=== PATIENT | male | born 1965 | race Two or more races ===

== ENCOUNTER 2024-09-21 08:51 | Outpatient (AMB) | payer MEDICAID, SELFPAY ==
[2024-09-21 09:07] VITALS: BP 118/78; PULSE 83; RESP 18; TEMP 36.7; O2SAT 95; BMI 36.8
--- NOTE | 2024-09-21 09:07 | ORTHONT_ITS ---
Vital signs 09/21/24 09:07 Height 1.83 m Height Method Stated Weight 123.15 kg Weight Measurement Method Standing Scale BMI 36.8 BP 118/78 Blood Pressure Source Automatic Cuff Blood Pressure Location Right Upper Arm Position Sitting Respiration 18 Pulse 83 Pulse Source Monitor Temp 98.0 F Temp Source Temporal Artery Scan Pulse Oximetry (%) 95 Oxygen Delivery Method Room Air Med/Allergies Allergies & Medications Allergies naproxen Allergy (Verified 09/21/24 09:08) Medication Reconciliation acetaminophen 500 mg capsule 500 mg PO Q6H PRN 08/25/24 [History Confirmed 09/21/24] albuterol sulfate 2.5 mg/3 mL (0.083 %) solution for nebulization 2.5 mg inhalation Q6H 08/25/24 [History Confirmed 09/21/24] atorvastatin 40 mg tablet 40 mg PO QDAY 08/25/24 [History Confirmed 09/21/24] azithromycin 250 mg tablet 250 mg PO QDAY 08/25/24 [History Confirmed 09/21/24] empagliflozin 25 mg tablet (Jardiance) 25 mg PO QAM 08/25/24 [History Confirmed 09/21/24] furosemide 40 mg/5 mL (8 mg/mL) oral solution 20 mg PO BID 08/25/24 [History Confirmed 09/21/24] metformin 1,000 mg tablet 1,000 mg PO QDAY 08/25/24 [History Confirmed 09/21/24] pantoprazole 40 mg tablet,delayed release 40 mg PO QDAY 08/25/24 [History Confirmed 09/21/24] sulfamethoxazole 200 mg-trimethoprim 40 mg/5 mL oral suspension 5 ml PO QDAY 08/25/24 [History Confirmed 09/21/24] sumatriptan succinate 25 mg tablet 25 mg PO Q2H PRN 08/25/24 [History Confirmed 09/21/24] tiotropium bromide 18 mcg capsule with inhalation device (Spiriva with HandiHaler) 1 cap inhalation QDAY 08/25/24 [History Confirmed 09/21/24] Subjective Visit Visit for: new patient and knee (BILATERAL) Immunization / Flu Flu Vaccine in the Last 12 Months: No Flu Vaccine Exclusion Criteria: No Exclusion Criteria History of Present Illness Chief complaint: PRE-OPT Ehsan is a pleasant 59-year-old male with bilateral knee pain and bilateral knee arthritis. The pain has been ongoing for several years. He reports he works in the [employer] and this has been wearing tear. He has had over 4 injections in each knee. The pain is affecting his quality life and happiness. He has significant medical issues including a history of a PE when he had COVID. He is on Xarelto. He was able to get cardiac clearance. Personal History Occupation: UNEMPLOYED Red flag PMH: none Pain Pain level (0-10): 8 Pain duration: CONSTANT Pain location: inside (medial), outside (lateral), anterior and posterior Pain quality: sharp, dull, aching, burning, shocking, electric and tingling Pain timing: night, increases with activity and stairs Associated signs & symptoms: numbness, weakness, stiffness and none Ambulatory data Ambulatory device: cane Treatments Number of previous injections: 6 Improvement with previous injections: No Number of Physical Therapy sessions: 6 Improvement with PT: No Improvement with NSAIDS: no Review of Systems Review of Systems: All systems negative unless otherwise noted in HPI. Exam Exam Patient is in no acute distress and is cooperative with the examination today. Breathing is nonlabored. In no respiratory distress. Bilateral extremities were evaluated and demonstrates sensation intact to light touch. Palpable pedal pulses are present. No significant edema is present. Bilateral hips were examined. The patient has no pain with log roll of the hips. Internal rotation to 30 degrees and external rotation to 30 degrees is painless. Negative FADIR. The left knee was examined. The left knee is in [varus] alignment. Range of motion from [0-115] degrees. Knee is stable to varus and valgus as well as AP translation with <5mm. Patient has a [negative] McMurrays. There is [no] pain with patellofemoral compression and [no] crepitus noted. The knee is [tender] to palpation [medially]. The right knee was also examined. The right knee is in [varus] alignment. Range of motion from [0-120] degrees. Knee is stable to varus and valgus as well as AP translation with <5mm. Patient has a [negative] McMurrays. There is [no] pain with patellofemoral compression and [no] crepitus noted. The knee is [tender] to palpation [medially]. X-rays from [facility] demonstrate complete joint space obliteration medially with varus arthritis and varus deformity Assessment and Plan Problem List (1) Degenerative arthritis of knee, bilateral: Status: Acute Plan: 59-year-old male with bilateral knee pain and bilateral knee arthritis. We discussed nonoperative and operative options. He was cleared medically and will need to resume xarelto. The nature and purpose of the total knee replacement, alternative method(s) of treatment, the material risks involved, and the possibility of complications were fully explained to the patient. The patient does NOT have any of the following contraindications to TKA: - Active infection of the knee joint, OR - Active systemic bacteremia, OR - Active skin infection or open wound at surgical site, OR - Neuropathic arthritis, OR - Severe, rapidly progressive neurological disease, OR - Severe medical condition that makes risks of surgery outweigh the potential benefit The patient was told the most common risks and complications associated with a total knee replacement include, but are not limited to: blood clots in the leg, fatal pulmonary embolism, dislocation of the prosthesis, intraoperative and postoperative fractures of the femur or tibia, infection, failure of the prosthesis or grafting materials, complications from anesthesia, reactions to blood transfusions, postoperative leg length inequality, instability of the knee replacement, nerve damage or injury, vascular injury, delayed wound healing, infection, other injury or even . In addition, there are risks associated with anesthesia given during this operation. Also, the patient was told that after undergoing a total knee replacement there may still be persistent pain or disability. The patient was informed that the success of this operation in part depends upon the mechanical devices which are going to be implanted and that these devices can fail or malfunction, and may need to be repaired or replaced and there are no guarantees as to the longevity of this device or its parts and that it or its parts could fail prematurely. The patient was also notified that during the course of surgery, there may be a need to use bone graft from donors, and that any bone graft used will be carefully screened for communicable diseases, including AIDS, hepatitis, Markos-Creutzfeldt, or other diseases, but despite the screening procedures, there is a small chance that they could contract one of these diseases. Finally, the patient was asked to follow completely and fully with all advice and recommended treatments, and that recovery and ultimate outcome are affected by their compliance with recommended treatment. We discussed the risks, benefits and treatment alternatives, and the patient is interested in proceeding with surgery. We will try to set this up as expeditiously as possible. Office Procedures GNS Level of Care Nursing/Assessment Patient Status: Established Patient Nursing Assessment/Reassesment: Medication Reconciliation, Update PMH in EMR and Vital Signs Coordination of Care: Complex Care and Chronic Disease 1-5, Education Complex Pt/Fam, Consent,records obtained, informed consent, 2-3 Insurance Autorizations needed, Lab and Imaging orders, Results/Orders obtained and Staff clarify orders Special Needs: Language special needs Established Patient Charge Established Patient Point Assignment: 130 Established Patient Point Charge: EP Level 4 (120-155) Past Medical History Past Medical History Have you ever been diagnosed with any of the following: Cardiology Problems Hypercholesterolemia: Yes Respiratory Problems Smoking: No Smoking Exposure: No Endocrine Problems Diabetes Mellitus Type 2: Yes
== END 2024-09-21 09:19 | disposition home or self-care (01) ==
LOC: HODSRG 08:51
PROVIDERS: PCP Family Medicine; Referring Provider Family Medicine; Supervising Provider Orthopaedic Surgery Adult Reconstructive Orthopaedic Surgery; Visit Provider Orthopaedic Surgery Adult Reconstructive Orthopaedic Surgery
DX: M17.0 Bilateral primary osteoarthritis of knee (principal); M25.562 Pain in left knee; M25.561 Pain in right knee; E78.00 Pure hypercholesterolemia, unspecified; Z86.711 Personal history of pulmonary embolism; Z86.16 Personal history of COVID-19
CPT/HCPCS: 99214; G0463

== ENCOUNTER → 2024-10-04 | Outpatient (CLI) | payer MEDICAID, SELFPAY ==
[2024-10-04 11:01] VITALS: BMI 36.5
--- NOTE | 2024-10-04 11:35 | EKG_ITS ---
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
[2024-10-04 12:28] LABS: Basophils % (Auto) 1 % (0-2.5); Eosinophils # (Auto) 0.2 Thou/mm3 (0.0-0.5); Eosinophils % (Auto) 2 % (0-10); Hematocrit 40.3 % (41.0-53.0); Hemoglobin 12.4 g/dL (13.5-16.0); Immature Granulocytes % (Auto) 0 % (0-0); Immature Granulocytes Auto 0.01 Thou/mm3 (0.00-0.00); Lymphocytes # (Auto) 3.5 Thou/mm3 (1.0-4.8); Lymphocytes % (Auto) 39 % (10-50); Mean Corpuscular HGB Conc 30.8 g/dl (31.0-37.0); Mean Corpuscular Hemoglobin 24.4 pg (25.0-35.0); Mean Corpuscular Volume 79 fL (80-100); Monocytes # (Auto) 1.1 Thou/mm3 (0.0-0.8); Monocytes % (Auto) 13 % (0-12); Neutrophils # (Auto) 4.1 Thou/mm3 (1.8-7.7); Neutrophils % (Auto) 46 % (37-80); Nucleated Red Blood Cell % 0 /100 WBC (0); Platelet Count 247 Thou/mm3 (140-440); RDW Standard Deviation 51.1 fL (35.1-43.9); Red Blood Count 5.08 Miln/mm3 (4.50-5.90); White Blood Count 8.9 Thou/mm3 (3.8-10.6)
[2024-10-04 12:37] LABS: Partial Thromboplastin Time 26.2 Seconds (22.0-36.0)
[2024-10-04 12:42] LABS: Alanine Aminotransferase 27 U/L (10-49); Albumin, Serum 4.6 gm/dL (3.4-4.8); Albumin/Globulin Ratio 1.4 (1.2-2.2); Alkaline Phosphatase 123 U/L (46-116); Anion Gap 6 (7-16); Aspartate Amino Transferase 31 U/L (0-34); BUN/Creatinine Ratio 10 Ratio (12-20); Bilirubin,Total 0.6 mg/dL (0.3-1.2); Blood Urea Nitrogen 9 mg/dL (9-23); Calcium 9.3 mg/dL (8.3-10.6); Calcium (Corrected) 9.3 mg/dL (8.5-10.1); Carbon Dioxide 28.6 mMol/L (20.0-31.0); Chloride 103 mMol/L (98-107); Creatinine (Component) 0.9 mg/dL (0.6-1.3); Estimated Creatinine Clearance 116.3 mL/min (>60); Globulin 3.2 gm/dL (2.3-3.5); Glucose 82 mg/dL (74-106); Osmolality,Calculated 273 (275-295); Potassium 3.6 mMol/L (3.4-5.1); Sodium 138 mMol/L (136-145); Total Protein 7.8 gm/dL (5.7-8.2); eGFR > 60 See Note
== END | disposition home or self-care (01) ==
LOC: SLAB 10-16 08:35
PROVIDERS: Anesthesiology; Referring Provider Orthopaedic Surgery Adult Reconstructive Orthopaedic Surgery; Visit Provider Orthopaedic Surgery Adult Reconstructive Orthopaedic Surgery
DX: Z01.812 Encounter for preprocedural laboratory examination (principal); M17.0 Bilateral primary osteoarthritis of knee; Z01.810 Encounter for preprocedural cardiovascular examination
CPT/HCPCS: 36415; 80053; 85025; 85610; 85730; 93005

== ENCOUNTER → 2024-10-04 | Outpatient (CLI) | payer MEDICAID, SELFPAY ==
--- NOTE | 2024-10-04 12:47 | XR_ITS ---
Examination: CT left lower extremity, without contrast. 2-D sagittal reconstructions. 2-D coronal reconstructions. 3-D reconstructions. Date and time of exam:October 04, 2024 1255 hours INDICATIONS: Left knee osteoarthritis years CTDI: vol (mGy):13.8 DLP: (mGycm):1088 Technique: Multiple 1.25 mm axial sections of the left lower extremity without intravenous contrast have been obtained. 2-D sagittal and coronal reconstructions have been obtained. 3-D reconstructions have been obtained. Low dose protocols were performed. One or more of the following dose reduction techniques were used; automated exposure control, adjustment of the mA and/or KV according to patient size, use of iterative reconstruction technique. Findings: Moderate osteopenia Moderate narrowing left hip joint No left hip fracture or dislocation no avascular necrosis Advanced tricompartment osteoarthritis left knee, severe narrowing essentially [id number] medial joint space left knee No fracture No patellar dislocation IMPRESSION: Advanced tricompartment osteoarthritis left knee, severe narrowing medial joint space left knee
--- NOTE | 2024-10-04 12:47 | XR_ITS ---
Examination: CT right lower extremity, without contrast. 2-D sagittal reconstructions. 2-D coronal reconstructions. 3-D reconstructions. Date and time of exam:October 04, 2024 1306 hours INDICATIONS: Right knee pain osteoarthritis several years CTDI: vol (mGy):15.9 DLP: (mGycm):1123 Technique: Multiple 1.25 mm axial sections of the right lower extremity without intravenous contrast have been obtained. 2-D sagittal and coronal reconstructions have been obtained. 3-D reconstructions have been obtained. Low dose protocols were performed. One or more of the following dose reduction techniques were used; automated exposure control, adjustment of the mA and/or KV according to patient size, use of iterative reconstruction technique. Findings: Moderate osteopenia Mild to moderate narrowing right hip joint No hip fracture or hip dislocation or avascular necrosis Advanced tricompartment osteoarthritis right knee, severe narrowing [id number] medial joint space right knee No fracture No patellar dislocation IMPRESSION: Advanced tricompartment osteoarthritis right knee
== END | disposition home or self-care (01) ==
LOC: SCAT 12:28
PROVIDERS: PCP Orthopaedic Surgery Adult Reconstructive Orthopaedic Surgery; Referring Provider Orthopaedic Surgery Adult Reconstructive Orthopaedic Surgery; Visit Provider Orthopaedic Surgery Adult Reconstructive Orthopaedic Surgery
DX: M17.0 Bilateral primary osteoarthritis of knee (principal); M25.862 Other specified joint disorders, left knee
CPT/HCPCS: 73700

== ENCOUNTER 2025-04-13 10:43 | Outpatient (AMB) | payer MEDICAID, SELFPAY ==
[2025-04-13 10:52] VITALS: BP 150/97; PULSE 91; RESP 18; TEMP 35.4; O2SAT 93; BMI 36.6
--- NOTE | 2025-04-13 10:52 | ORTHONT_ITS ---
Vital signs 04/13/25 10:52 Height 1.83 m Height Method Stated Weight 122.527 kg Weight Measurement Method Standing Scale BMI 36.6 BP 150/97 H Blood Pressure Source Automatic Cuff Blood Pressure Location Right Upper Arm Position Sitting Respiration 18 Pulse 91 Pulse Source Monitor Temp 95.8 F L Temp Source Temporal Artery Scan Pulse Oximetry (%) 93 L Oxygen Delivery Method Room Air Med/Allergies Allergies & Medications Allergies naproxen Allergy (Verified 04/13/25 10:54) Medication Reconciliation acetaminophen 500 mg capsule 500 mg PO Q6H PRN Pain 08/25/24 [History Confirmed 04/13/25] albuterol sulfate 2.5 mg/3 mL (0.083 %) solution for nebulization 2.5 mg inhalation Q6H 08/25/24 [History Confirmed 04/13/25] atorvastatin 40 mg tablet 40 mg PO QDAY 08/25/24 [History Confirmed 04/13/25] furosemide 40 mg/5 mL (8 mg/mL) oral solution 20 mg PO BID 08/25/24 [History Confirmed 04/13/25] metformin 1,000 mg tablet 1,000 mg PO QDAY 08/25/24 [History Confirmed 04/13/25] pantoprazole 40 mg tablet,delayed release 40 mg PO QDAY 08/25/24 [History Confirmed 04/13/25] sumatriptan succinate 25 mg tablet 25 mg PO Q2H PRN Migraine Headache 08/25/24 [History Confirmed 04/13/25] tiotropium bromide 18 mcg capsule with inhalation device (Spiriva with HandiHaler) 1 cap inhalation QDAY 08/25/24 [History Confirmed 04/13/25] celecoxib 100 mg capsule 100 mg PO DAILY 10/04/24 [History Confirmed 04/13/25] empagliflozin 25 mg tablet (Jardiance) 25 mg PO QAM 10/04/24 [History Confirmed 04/13/25] rivaroxaban 20 mg tablet (Xarelto) 20 mg PO QDAY 10/04/24 [History Confirmed 04/13/25] Exam Exam Patient is in no acute distress and is cooperative with the examination today. Breathing is nonlabored. In no respiratory distress. Bilateral extremities were evaluated and demonstrates sensation intact to light touch. Palpable pedal pulses are present. No significant edema is present. Bilateral hips were examined. The patient has no pain with log roll of the hips. Internal rotation to 30 degrees and external rotation to 30 degrees is painless. Negative FADIR. The left knee was examined. The left knee is in [varus] alignment. Range of motion from [0-115] degrees. Knee is stable to varus and valgus as well as AP translation with <5mm. Patient has a [negative] McMurrays. There is [no] pain with patellofemoral compression and [no] crepitus noted. The knee is [tender] to palpation [medially]. The right knee was also examined. The right knee is in [varus] alignment. Range of motion from [0-120] degrees. Knee is stable to varus and valgus as well as AP translation with <5mm. Patient has a [negative] McMurrays. There is [no] pain with patellofemoral compression and [no] crepitus noted. The knee is [tender] to palpation [medially]. X-rays from [facility] demonstrate complete joint space obliteration medially with varus arthritis and varus deformity Assessment and Plan Problem List (1) Degenerative arthritis of knee, bilateral: Status: Acute Plan: 59-year-old male with bilateral knee pain and bilateral knee arthritis. We discussed nonoperative and operative options. He was cleared medically. The right knee hurts more and he wants to start on this side. He is now off all anticoagulation. We will likely give him Eliquis postoperatively The nature and purpose of the total knee replacement, alternative method(s) of treatment, the material risks involved, and the possibility of complications were fully explained to the patient. The patient does NOT have any of the following contraindications to TKA: - Active infection of the knee joint, OR - Active systemic bacteremia, OR - Active skin infection or open wound at surgical site, OR - Neuropathic arthritis, OR - Severe, rapidly progressive neurological disease, OR - Severe medical condition that makes risks of surgery outweigh the potential benefit The patient was told the most common risks and complications associated with a total knee replacement include, but are not limited to: blood clots in the leg, fatal pulmonary embolism, dislocation of the prosthesis, intraoperative and postoperative fractures of the femur or tibia, infection, failure of the prosthesis or grafting materials, complications from anesthesia, reactions to blood transfusions, postoperative leg length inequality, instability of the knee replacement, nerve damage or injury, vascular injury, delayed wound healing, infection, other injury or even . In addition, there are risks associated with anesthesia given during this operation. Also, the patient was told that after undergoing a total knee replacement there may still be persistent pain or disability. The patient was informed that the success of this operation in part depends upon the mechanical devices which are going to be implanted and that these devices can fail or malfunction, and may need to be repaired or replaced and there are no guarantees as to the longevity of this device or its parts and that it or its parts could fail prematurely. The patient was also notified that during the course of surgery, there may be a need to use bone graft from donors, and that any bone graft used will be carefully screened for communicable diseases, including AIDS, hepatitis, Markos-Creutzfeldt, or other diseases, but despite the screening procedures, there is a small chance that they could contract one of these diseases. Finally, the patient was asked to follow completely and fully with all advice and recommended treatments, and that recovery and ultimate outcome are affected by their compliance with recommended treatment. We discussed the risks, benefits and treatment alternatives, and the patient is interested in proceeding with surgery. We will try to set this up as expeditiously as possible. Office Procedures GNS Level of Care Nursing/Assessment Patient Status: Established Patient Nursing Assessment/Reassesment: Medication Reconciliation, Update PMH in EMR and Vital Signs Coordination of Care: Complex Care and Chronic Disease 1-5, Education Complex Pt/Fam, Consent,records obtained, informed consent, Results/Orders obtained and Staff clarify orders Special Needs: Language special needs (ANGOLAN ) Established Patient Charge Established Patient Point Assignment: 95 Established Patient Point Charge: EP Level 3 (80-115) MA Intake Visit Data Collection New Patient or Established: Established Patient (seen at [facility] within 3 years) Reason for Visit:: RIGHT KNEE PAIN Seen by Clinical Staff ONLY (RN/MA): No Pulp Grinder Feeder Required: Yes PCP or OBGYN visit in last 3 months: Yes Hx Now: No Do You Feel Safe at Home: Yes Authorities Contacted: N/A Questionairres Past Medical History Past Medical History Have you ever been diagnosed with any of the following: Cardiology Problems Hypercholesterolemia: Yes Congestive Heart Failure: No Varicose Veins: Yes Respiratory Problems Chronic Obstructive Pulmonary Disease (COPD): No Pneumonia: Yes Pulmonary Embolism: Yes Smoking: No Smoking Exposure: No Stomache/Intestinal Problems Hepatitis: No Obesity: Yes Genital/Urinary Problems Renal Disease: No Musculoskeletal Problems Arthritis: Yes Degenerative Disk Disease: Yes Endocrine Problems Diabetes Mellitus Type 1: No Diabetes Mellitus Type 2: Yes Psychologic Problems Anxiety: Yes Other Problems Hospitalization: Yes Shingles: No Blood Transfusions: No Anesthesia Reactions: No Cancer: No Subjective Visit Visit for: follow up visit and knee (RIGHT KNEE PAIN ) Immunization / Flu Flu Vaccine in the Last 12 Months: No Flu Vaccine Exclusion Criteria: Refused by Patient History of Present Illness Chief complaint: bilateral knee pain Ehsan is a pleasant 59-year-old male with bilateral knee pain and bilateral knee arthritis. The pain has been ongoing for several years. He reports he works in the [employer] and this has been wearing tear. He has had over 4 injections in each knee. The pain is affecting his quality life and happiness. He has significant medical issues including a history of a PE when he had COVID. He saw a compounding assistant and was told that he is good. We do not have his cardiac clearance form form his compounding assistant Personal History Red flag PMH: none Pain Pain level (0-10): 8 Pain duration: +10 YEARS Pain location: anterior Pain quality: sharp, dull and tingling Pain timing: night and increases with activity Associated signs & symptoms: weakness and stiffness Ambulatory data Ambulatory device: cane Walking distance (minutes): 1 Treatments Number of previous injections: 4 Improvement with previous injections: No Number of Physical Therapy sessions: 0 Improvement with NSAIDS: n/a Review of Systems Review of Systems: All systems negative unless otherwise noted in HPI.
== END 2025-04-13 11:09 | disposition home or self-care (01) ==
PROVIDERS: Supervising Provider Orthopaedic Surgery Adult Reconstructive Orthopaedic Surgery; Visit Provider Orthopaedic Surgery Adult Reconstructive Orthopaedic Surgery
DX: M17.0 Bilateral primary osteoarthritis of knee (principal); M25.562 Pain in left knee; M25.561 Pain in right knee; E78.00 Pure hypercholesterolemia, unspecified; Z86.711 Personal history of pulmonary embolism; E11.9 Type 2 diabetes mellitus without complications
CPT/HCPCS: 99213; G0463

== ENCOUNTER → 2025-05-03 | Outpatient (CLI) | payer MEDICAID, SELFPAY ==
--- NOTE | 2025-05-03 | XR_ITS ---
Examination: CT right lower extremity, without contrast. 2-D sagittal reconstructions. 2-D coronal reconstructions. 3-D reconstructions. Date and time of exam:May 03, 2025 1818 hours INDICATIONS: Right knee pain 10 years, diagnoses unilateral osteoarthritis right knee CTDI: vol (mGy):12.6 DLP: (mGycm):1117 Technique: Multiple 1.25 mm axial sections of the right lower extremity without intravenous contrast have been obtained. 2-D sagittal and coronal reconstructions have been obtained. 3-D reconstructions have been obtained. Low dose protocols were performed. One or more of the following dose reduction techniques were used; automated exposure control, adjustment of the mA and/or KV according to patient size, use of iterative reconstruction technique. Findings: Mild osteopenia. Mild to moderate narrowing right hip joint No fracture or hip dislocation Advanced tricompartment osteoarthritis right knee including severe narrowing medial joint space and severe narrowing lateral patellofemoral joint No fractures No avascular necrosis IMPRESSION: Advanced tricompartment osteoarthritis right knee
== END | disposition home or self-care (01) ==
PROVIDERS: Referring Provider Orthopaedic Surgery Adult Reconstructive Orthopaedic Surgery; Visit Provider Orthopaedic Surgery Adult Reconstructive Orthopaedic Surgery
DX: M17.11 Unilateral primary osteoarthritis, right knee (principal)
CPT/HCPCS: 73700

== ENCOUNTER → 2025-05-07 | Day surgery (SDC) | payer MEDICAID, SELFPAY ==
--- NOTE | 2025-05-04 07:10 | EKG_ITS ---
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
[2025-05-04 08:11] VITALS: BMI 36.8
[2025-05-04 09:50] LABS: Basophils # (Auto) 0.1 Thou/mm3 (0.0-0.2); Basophils % (Auto) 1 % (0-2.5); Eosinophils # (Auto) 0.1 Thou/mm3 (0.0-0.5); Eosinophils % (Auto) 1 % (0-10); Hemoglobin 14.2 g/dL (13.5-16.0); Immature Granulocytes % (Auto) 0 % (0-0); Immature Granulocytes Auto 0.02 Thou/mm3 (0.00-0.00); Lymphocytes # (Auto) 4.4 Thou/mm3 (1.0-4.8); Lymphocytes % (Auto) 42 % (10-50); Mean Corpuscular HGB Conc 31.6 g/dl (31.0-37.0); Mean Corpuscular Hemoglobin 26.5 pg (25.0-35.0); Mean Corpuscular Volume 84 fL (80-100); Monocytes # (Auto) 1.1 Thou/mm3 (0.0-0.8); Monocytes % (Auto) 11 % (0-12); Neutrophils # (Auto) 4.7 Thou/mm3 (1.8-7.7); Neutrophils % (Auto) 45 % (37-80); Nucleated Red Blood Cell % 0 /100 WBC (0); Platelet Count 224 Thou/mm3 (140-440); RDW Standard Deviation 53.1 fL (35.1-43.9); Red Blood Count 5.35 Miln/mm3 (4.50-5.90); White Blood Count 10.4 Thou/mm3 (3.8-10.6)
[2025-05-04 09:56] LABS: Partial Thromboplastin Time 25.7 Seconds (22.0-36.0); Prothrombin Time 10.9 Seconds (9.0-12.2)
[2025-05-04 09:59] LABS: Alanine Aminotransferase 27 U/L (10-49); Albumin, Serum 4.3 gm/dL (3.4-4.8); Albumin/Globulin Ratio 1.4 (1.2-2.2); Alkaline Phosphatase 96 U/L (46-116); Anion Gap 7 (7-16); Aspartate Amino Transferase 32 U/L (0-34); BUN/Creatinine Ratio 9 Ratio (12-20); Bilirubin,Total 0.5 mg/dL (0.3-1.2); Blood Urea Nitrogen 9 mg/dL (9-23); Calcium 8.7 mg/dL (8.3-10.6); Calcium (Corrected) 8.7 mg/dL (8.5-10.1); Carbon Dioxide 27.7 mMol/L (20.0-31.0); Chloride 107 mMol/L (98-107); Estimated Creatinine Clearance 103.9 mL/min (>60); Glucose 98 mg/dL (74-106); Osmolality,Calculated 281 (275-295); Potassium 4.5 mMol/L (3.4-5.1); Sodium 142 mMol/L (136-145); Total Protein 7.3 gm/dL (5.7-8.2); eGFR > 60 See Note
[2025-05-07 09:00] VITALS: BP 111/75; PULSE 61; RESP 22; TEMP 36.8; O2SAT 91; BMI 36.3
--- NOTE | 2025-05-07 09:00 | SUR.PREOP ---
pt satting 91% on room air and states he normally uses oxygen at home but does not have an oxygen machine at this time due to changing medical clinics and is in the process of getting a new one, pt states he is normally on 3-4L. Oxygen applied via nasal cannula and oxygen saturation went up to 97%. Will inform anesthisia
[2025-05-07] MEDS: ACETAMINOPHEN 325 MG TABLET 650 MG PO (09:22)
[2025-05-07] MEDS: PREGABALIN 75 MG CAPSULE PO (09:23)
[2025-05-07] MEDS: MELOXICAM 7.5 MG TABLET PO (09:23)
[2025-05-07] MEDS: RINGERS LACTATED 1000 ML 1,000 ML 20 ML IV (09:24)
--- NOTE | 2025-05-07 09:41 | SUR.PREOP ---
surgery cancelled and pt needs pulmonary clearance per Dr Mojica
== END | disposition home or self-care (01) ==
LOC: S2EX 08:05
PROVIDERS: Anesthesiology; PCP Family Medicine; Referring Provider Orthopaedic Surgery Adult Reconstructive Orthopaedic Surgery; Visit Provider Orthopaedic Surgery Adult Reconstructive Orthopaedic Surgery
DX: M17.11 Unilateral primary osteoarthritis, right knee (principal); Z53.9 Procedure and treatment not carried out, unspecified reason
CPT/HCPCS: 27447; 36415; 80053; 85025; 85610; 85730; 93005; J0690; J1100; J2250; J2405; J3010; J3490; J7120; A9270